=== PATIENT | male | born 2000 | race Caucasian/White ===

== ENCOUNTER 2023-12-07 19:04 | Emergency (ER) | payer BC, OTHER ==
[2023-12-07 19:11] VITALS: BP 132/72; PULSE 94; RESP 18; TEMP 99; BMI 20.9
[2023-12-07] MEDS: SODIUM CHLORIDE 1,000 ML IV ONE (19:51)
[2023-12-07 20:04] LABS: HEMATOCRIT 46.1 % (35.4-49); HEMOGLOBIN 15.3 G/dL (11.7-16.9); MCH 30.6 pg (25.7-33.7); MCHC 33.2 g/dl (32.0-35.9); MEAN PLT VOLUME 8.8 fl (7.5-11.1); PLATELET COUNT 110.6 10^3/uL (134-434); RBC 5.01 10^6/uL (4.00-5.60); RDW 13.6 % (11.9-15.9); WHITE BLOOD COUNT 9.2 10^3/uL (4.0-10.8)
[2023-12-07 20:19] LABS: ALBUMIN 4.8 g/dl (3.4-5.0); BILIRUBIN,TOTAL 1.1 mg/dl (0.2-1); CALCIUM 9.5 mg/dl (8.5-10.1); CREATININE 0.8 mg/dl (0.6-1.3); POTASSIUM 3.9 mmol/L (3.5-5.1)
== END 2023-12-07 21:39 | disposition home or self-care (01) ==
LOC: FER 19:04
PROC: 3E0337Z Introduction of Electrolytic and Water Balance Substance into Peripheral Vein, Percutaneous Approach (ICD-10-PCS; principal; 2023-12-07)
DX: R10.31 Right lower quadrant pain (principal); R63.0 Anorexia
CPT/HCPCS: 36415; 74177-TC; 80053; 81003; 85027; 99285-25; Q9967